=== PATIENT | male | born 1945 | race Caucasian/White ===

== ENCOUNTER 2022-04-12 15:07 | Emergency (ER) | payer MEDICARE, SELFPAY ==
[2022-04-12] VITALS (7 sets, daily range): BP systolic 108–152; BP diastolic 55–85; PULSE 70–82; RESP 18–20; TEMP 36.6; O2SAT 96–98
--- NOTE | 2022-04-12 15:10 | W.ED.WEAKNES ---
HPI - Weakness General: Chief complaint: Nausea/Vomiting/Diarrhea Stated complaint: WEAKNESS; N/V Time Seen by Provider: 04/12/22 15:10 History of Present Illness: Mr. Hernandez is a 76-year-old gentleman with history of hypertension, hyperlipidemia, difficulty with ambulation, history of persistent vertigo presenting to the emergency department due to nausea vomiting and generalized weakness. He reports over the past few days he has had nausea and vomiting multiple times mostly liquid and food contents. No blood in vomit. Additionally has had intermittent difficulties with constipation though is unsure if this is acutely changed from baseline his heel is longstanding history of intermittent diarrhea and constipation. No significant abdominal discomfort. Earlier today he was out at a cookout and outside most of the day. This caused increased weakness and he got nauseous and was weak to the point that he vomited and fell to the ground on his knees. No head strike or loss of consciousness. Not on anticoagulation. Intensity symptoms is moderate to severe. Course is worsened. No other specific changes in health, exacerbating, or alleviating factors identified. Of note patient reports most of his care has been at [facility] in [place] though he is also seen at [facility] at [place]. His persistent vertigo and intermittent severe lower extremity weakness which limits ability to ambulate is currently under investigation with no clear etiology identified. Onset (ago): day(s) Duration: constant Location: generalized Severity: moderate Associated symptoms: Reports nausea and vomiting Review of Systems General: Reports: 10 or more systems reviewed and unremarkable except in HPI and below GI: Reports: nausea and vomiting [facility] ED PFSH: Medical History (Updated 04/12/22 @ 20:05 by Florentin Guillen MD) Hyperlipidemia Hypertension Vertigo Weakness Surgical History (Updated 04/12/22 @ 15:33 by Florentin Guillen MD) History of eyelid surgery History of nasal surgery Social History (Updated 04/12/22 @ 15:34 by Florentin Guillen MD) Smoking and tobacco status: former smoker Quit status (tobacco): has quit using tobacco Year quit tobacco: 1980 Physical Exam Const: COMMON NORMALS: alert GENERAL APPEARANCE: cooperative and well developed HENMT: COMMON NORMALS: normocephalic and atraumatic HEAD & SCALP: normocephalic and atraumatic Eye: COMMON NORMALS: conjunctivae normal CONJUNCTIVA: Yes conjunctivae normal SCLERA: sclerae normal Neck/C-Spine: COMMON NORMALS: supple GENERAL: Yes trachea midline Resp: COMMON NORMALS: clear to auscultation bilaterally EFFORT & INSPECTION: Yes able to speak in complete sentences AUSCULTATION: clear to auscultation bilaterally Cardio: COMMON NORMALS: regular rate and regular rhythm RATE: regular rate RHYTHM: regular rhythm GI: COMMON NORMALS: Soft to palpation PALPATION: Yes Soft to palpation and No Tenderness to palpation present (GI) PERCUSSION: normal to percussion Extremity: GENERAL: Yes normal exam except as noted and No edema Neuro: COMMON NORMALS: moves all extremities SENSORIUM/ORIENTATION: Yes alert and No Orientation impaired Psych: COMMON NORMALS: mental status grossly normal and Normal thought process present THOUGHT PROCESS: Normal thought process present Skin: NARRATIVE SKIN EXAM: Abrasions bilateral shins Course ED course: - Patient was seen and evaluated by me at bedside - Patient placed on cardiac monitors, IV access obtained - Initial evaluation notable for exam as above. Nonfocal neurologic exam. - Labs and xrays personally interpreted by me. EKGs reviewed showing sinus rhythm with nonspecific ST segment abnormalities. No STEMI. -Tdap, symptom treatment ordered. - Labs notable for leukocytosis, normal hemoglobin. Metabolic panel with mildly elevated creatinine with hypokalemia. Replenishment ordered. Delta troponin negative. Urinalysis not concerning for urinary tract infection - Imaging notable for no lobar consolidation or pneumothorax on chest x-ray. CT abdomen pelvis negative for acute pathology to explain patient symptoms. Incidental findings discussed. - Upon serial reexamination after treatment the patient was dehydration of uncertain causative etiology. - Based on patient history, evaluation, and testing as interpreted the most likely cause of the patient's condition is improved - The results of ED evaluation were discussed with the patient including prescriptions and/or symptomatic cares (if applicable) including appropriate and responsible use, followup plan, and return precautions. The patient verbalized understanding and felt safe for discharge. - Patient discharged in satisfactory condition. Note: Click bubbles or prepopulated lees in note writing are used for assistance with data collection and billing and are inherently more limited than narrative and other text portions of this note. Please use narrative for additional clinical history and defer to narrative/free test for any case of contradictory information. If information appears in only free text or click bubble it should be considered present or absent as reported. Please contact note policy writer for clarifications of clinical information or contradictory information. MDM is a brief summary, contradictory or erroneous seeming information should be clarified and full note should be reviewed. Vital Signs: Vital signs: Vital Signs Temperature 97.8 F 04/12/22 15:10 Pulse Rate 70 04/12/22 20:47 Respiratory Rate 20 H 04/12/22 20:47 Blood Pressure 152/74 04/12/22 20:47 Pulse Oximetry 98 04/12/22 20:47 MDM - Weakness Medical Decision Making 76-year-old gentleman with complex past medical history presenting to the emergency department due to nausea, vomiting, generalized weakness. Patient found to be dehydrated with hypokalemia on laboratory studies. No obvious source because of patient's symptoms. Improved with symptom treatment and repeat BMP with resolution of significant dehydration. Satisfactory for outpatient management, patient comfortable with plan. Medical Records I reviewed the patient's medical records. Lab Data I reviewed the patient's lab results. : 04/12/22 15:15 04/12/22 19:20 Radiology Impressions Chest X-Ray 04/12/22 15:30 IMPRESSION: No acute findings. Abdomen/Pelvis CT 04/12/22 15:31 IMPRESSION: 1. Negative for acute inflammatory process in the abdomen or pelvis. 2. Coronary artery atherosclerotic calcifications. 3. Right middle lobe 8.1 mm pulmonary nodule partially imaged, dedicated chest CT advised nonemergently for further evaluation. 4. Cholelithiasis. 5. Prostate gland enlarged. 6. Several bilateral renal cysts, negative for follow-up advised. Laboratory Results WBC 15.8 10^3/uL (4.0-10.0) H 04/12/22 15:15 RBC 5.11 10^6/uL (4.1-5.3) 04/12/22 15:15 Hgb 14.6 g/dL (11.7-16.6) 04/12/22 15:15 Hct 44.2 % (42.0-52.0) 04/12/22 15:15 MCV 86.5 fl (80-94) 04/12/22 15:15 MCH 28.6 pg (28.0-34.0) 04/12/22 15:15 MCHC 33.0 g/dL (30.0-36.0) 04/12/22 15:15 RDW 15.5 % (12.1-15.1) H 04/12/22 15:15 Plt Count 315 10^3/cmm (130-400) 04/12/22 15:15 MPV 12.0 fL (7.4-10.4) H 04/12/22 15:15 Neut % (Auto) 62.4 % 04/12/22 15:15 Lymph % (Auto) 25.6 % 04/12/22 15:15 [place] % (Auto) 8.9 % 04/12/22 15:15 Eos % (Auto) 2.2 % 04/12/22 15:15 Baso % (Auto) 0.5 % 04/12/22 15:15 Neut # (Auto) 9.85 10^3/uL (1.8-7.7) H 04/12/22 15:15 Lymph # (Auto) 4.0 10^3/uL (0.8-4.8) 04/12/22 15:15 [place] # (Auto) 1.4 10^3/uL (0.2-0.9) H 04/12/22 15:15 Eos # (Auto) 0.3 10^3/uL (0.0-0.8) 04/12/22 15:15 Baso # (Auto) 0.1 10^3/uL (0.0-0.1) 04/12/22 15:15 Nucleated RBC % (auto) 0 % 04/12/22 15:15 Nucleated RBCs # 0.0 /100WBC 04/12/22 15:15 Sodium 140 mmol/L (136-145) 04/12/22 19:20 Potassium 3.6 mmol/L (3.5-5.1) 04/12/22 19:20 Chloride 103 mmol/L (98-107) 04/12/22 19:20 Carbon Dioxide 23 mmol/L (22-29) 04/12/22 19:20 Anion Gap 17.6 (5-19) 04/12/22 19:20 BUN 25 mg/dL (8-23) H 04/12/22 19:20 Creatinine 1.5 mg/dL (0.7-1.2) H 04/12/22 19:20 GFR Calculation Not Reportable 04/12/22 19:20 Glucose 80 mg/dL (65-115) 04/12/22 19:20 Calculated Osmolality 293 mOsm/kg (285-295) 04/12/22 19:20 Lactic Acid 2.0 mmol/L (0.5-2.2) 04/12/22 19:20 Calcium 10.0 mg/dL (8.5-10.5) 04/12/22 19:20 Total Bilirubin 0.5 mg/dL (0.15-1.2) 04/12/22 15:15 AST 20 U/L (0-40) 04/12/22 15:15 ALT 16 U/L (0-41) 04/12/22 15:15 Alkaline Phosphatase 85 IU/L (40-130) 04/12/22 15:15 Creatine Kinase 111 U/L (39-308) 04/12/22 15:15 Troponin T Baseline 18 ng/L (0-15) H 04/12/22 15:15 Troponin T 120 Minute 16.03 ng/L (0-15) H 04/12/22 17:16 Delta Troponin T -1.97 ABS# (0-10) L 04/12/22 17:16 C-Reactive Protein 4.6 mg/L (0.0-4.9) 04/12/22 15:15 NT-Pro-B Natriuret Pep 74 pg/mL (0-450) 04/12/22 15:15 Total Protein 7.7 g/dL (6.6-8.7) 04/12/22 15:15 Albumin 4.5 g/dL (3.5-5.2) 04/12/22 15:15 Globulin 3.2 g/dL (1.3-4.6) 04/12/22 15:15 Procalcitonin 0.14 ng/mL (0-0.5) 04/12/22 15:15 TSH 3.95 uIU/mL (0.27-4.20) 04/12/22 15:15 Urine Color Yellow (Yellow) 04/12/22 18:45 Urine Appearance Clear (CLEAR) 04/12/22 18:45 Urine pH 6 (5-7) 04/12/22 18:45 Ur Specific [place] 1.020 (1.005-1.030) 04/12/22 18:45 Urine Protein Neg (Negative) 04/12/22 18:45 Urine Glucose (UA) Norm (Normal) 04/12/22 18:45 Urine Ketones Negative (Negative) 04/12/22 18:45 Urine Blood Neg (Negative) 04/12/22 18:45 Urine Nitrate Negative (Negative) 04/12/22 18:45 Urine Bilirubin 1+ (Negative) H 04/12/22 18:45 Urine Urobilinogen 1 mg/dL (Negative) H 04/12/22 18:45 Ur Leukocyte Esterase 1+ (Negative) H 04/12/22 18:45 Urine RBC 0-4 /hpf (0-2) H 04/12/22 18:45 Urine WBC 5-10 /hpf (0-5) H 04/12/22 18:45 Ur Squamous Epith Cells 10-15 /hpf (0-5) H 04/12/22 18:45 Amorphous Sediment 1+ /hpf 04/12/22 18:45 Urine Bacteria Trace /hpf (NONE) 04/12/22 18:45 Hyaline Casts 0-4 /lpf H 04/12/22 18:45 Urine Mucus 2+ /hpf 04/12/22 18:45 Discharge Plan Discharge Patient Disposition: Home Clinical Impression: Nausea & vomiting, Weakness, Dehydration, Creatinine elevation Condition: Stable Prescriptions: New ondansetron 4 mg tablet,disintegrating 4 mg PO Q8H PRN (Reason: nausea and vomiting) Qty: 15 0RF No Action Zyrtec 10 mg Tablet 10 mg PO DAILY 0RF metoprolol tartrate 100 mg tablet 50 mg PO BID 0RF lisinopril 20 mg tablet 20 mg PO BID 0RF topiramate 25 mg tablet 25 mg PO BID 0RF hydralazine 25 mg tablet 25 mg PO BID 0RF pravastatin 80 mg tablet 80 mg PO DAILY 0RF metformin 1,000 mg tablet 1,000 mg PO DAILY 0RF glimepiride 4 mg tablet 4 mg PO DAILY 0RF fluticasone propionate 50 mcg/actuation spray,suspension 2 spray intranasal DAILY PRN (Reason: Nasal Congestion) 0RF hydrochlorothiazide 12.5 mg tablet 12.5 mg PO DAILY 0RF Ozempic 0.25 mg or 0.5 mg(2 mg/1.5 mL) pen injector 0.5 mg SUBCUT Q7D 0RF Rx Instructions: ON SUNDAYS Discharge Orders: Discharge ED (Routine); Ordered 04/12/22 Ordered By: Florentin Guillen Discharge Diet: Advance as tolerated and Clear Liquid Discharge Activity: Increase activity as tolerated Patient Instructions: Dehydration (ED), Acute Nausea and Vomiting (ED), Weakness (ED) Activity Restrictions/Additional Instructions: Thank you for visiting the emergency department. You were seen and evaluated for nausea, vomiting, weakness. The exact cause of your symptoms is unclear. You were noted to have fairly significant dehydration which improved after a IV fluids. I will discharge you with antinausea medications, please ensure that you are drinking plenty of water. Additionally, given elevated kidney function I recommend repeat laboratory studies in 1 week to ensure improvement. Please follow-up with your primary care provider. Please return to the emergency department for worsening symptoms, inability to tolerate p.o. intake, continued nausea vomiting, or anything else that you are concerned about and feel needs emergency department evaluation. 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
--- NOTE | 2022-04-12 15:30 | XRR_ITS ---
PROCEDURE INFORMATION: Exam: XR Chest Exam date and time: 04/12/2022 3:47 PM Age: 76 years old Clinical indication: Injury or trauma; Fall; Blunt trauma (contusions or hematomas); Additional info: Fall, weakness TECHNIQUE: Imaging protocol: XR of the chest. Views: 1 view. COMPARISON: No relevant prior studies available. FINDINGS: Lungs: Unremarkable. No consolidation. Pleural spaces: Unremarkable. No pleural effusion. No pneumothorax. Heart/Mediastinum: Unremarkable. No cardiomegaly. Bones/joints: Unremarkable. XR/XR chest 1V portable [id number] IMPRESSION: No acute findings.
--- NOTE | 2022-04-12 15:31 | CTR_ITS ---
PROCEDURE INFORMATION: Exam: CT Abdomen And Pelvis Without Contrast Exam date and time: 04/12/2022 3:54 PM Age: 76 years old Clinical indication: Abdominal pain; Epigastric; Additional info: N/v TECHNIQUE: Imaging protocol: Computed tomography of the abdomen and pelvis without contrast. Radiation optimization: All CT scans at this facility use at least one of these dose optimization techniques: automated exposure control; mA and/or kV adjustment per patient size (includes targeted exams where dose is matched to clinical indication); or iterative reconstruction. COMPARISON: CR (CHEST, ) 04/12/2022 3:47 PM RADIATION DOSE METRICS: Total DLP (mGy-cm): 1928.3 FINDINGS: Lungs: Right middle lobe 8.1 mm pulmonary nodule partially imaged, dedicated chest CT advised nonemergently for further evaluation. Heart: Coronary artery atherosclerotic calcifications. Liver: Normal. No mass. Gallbladder and bile ducts: Cholelithiasis. Pancreas: Normal. No ductal dilation. Spleen: Normal. No splenomegaly. Adrenal glands: Normal. No mass. Kidneys and ureters: Several bilateral renal cysts, negative for follow-up advised. Stomach and bowel: Unremarkable. No obstruction. No mucosal thickening. Appendix: No evidence of appendicitis. Intraperitoneal space: Unremarkable. No free air. No significant fluid collection. Vasculature: Unremarkable. No abdominal aortic aneurysm. Lymph nodes: Unremarkable. No enlarged lymph nodes. Urinary bladder: Unremarkable as visualized. Reproductive: Prostate gland enlarged. Bones/joints: Unremarkable. No acute fracture. Soft tissues: Unremarkable. CT/CT abdomen pelvis wo con [id number] IMPRESSION: 1. Negative for acute inflammatory process in the abdomen or pelvis. 2. Coronary artery atherosclerotic calcifications. 3. Right middle lobe 8.1 mm pulmonary nodule partially imaged, dedicated chest CT advised nonemergently for further evaluation. 4. Cholelithiasis. 5. Prostate gland enlarged. 6. Several bilateral renal cysts, negative for follow-up advised.
--- NOTE | 2022-04-12 15:31 | ECG_ITS ---
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 Measurements Intervals [place] Rate: 80 P: 63 [place]: 168 QRS: 85 QRSD: 92 T: 78 QT: 377 QTc: 435 Interpretive Statements SINUS RHYTHM NONSPECIFIC T-WAVE ABNORMALITY No previous ECG available for comparison Electronically Signed On 04-13-2022 13:26:27 CDT by Sunita Mckinley M.D. [email or web address]
[2022-04-12 15:42] LABS: Basophils # 0.1 10^3/uL (0.0-0.1); Basophils % 0.5 %; Eosinophils # 0.3 10^3/uL (0.0-0.8); Eosinophils % 2.2 %; Hematocrit 44.2 % (42.0-52.0); Hemoglobin 14.6 g/dL (11.7-16.6); Lymphocytes % 25.6 %; Mean Corpuscular Hemoglobin 28.6 pg (28.0-34.0); Mean Corpuscular Volume 86.5 fl (80-94); Monocytes # 1.4 10^3/uL (0.2-0.9); Monocytes % 8.9 %; Neutrophils # 9.85 10^3/uL (1.8-7.7); Neutrophils % 62.4 %; Nucleated Red Blood Cells % 0 %; Platelet Count 315 10^3/cmm (130-400); Red Blood Count 5.11 10^6/uL (4.1-5.3); Red Cell Distribution Width 15.5 % (12.1-15.1); White Blood Count 15.8 10^3/uL (4.0-10.0)
[2022-04-12 16:11] LABS: Troponin(5th) Baseline 18 ng/L (0-15)
[2022-04-12] MEDS: ondansetron 2 mg/ML SDV 2 mL 4 MG IVP (16:11)
[2022-04-12] MEDS: tetanus-dipt-pertussis 0.5 mL SDV IM (16:11)
[2022-04-12] MEDS: sodium chloride 0.9% 1,000 ML 999 ML IV ×2 (16:13→19:50)
[2022-04-12 16:18] LABS: NT Pro B Type Natriuretic Pept 74 pg/mL (0-450); Procalcitonin 0.14 ng/mL (0-0.5); Thyroid Stimulating Hormone 3.95 uIU/mL (0.27-4.20)
[2022-04-12 16:30] LABS: Alanine Aminotransferase 16 U/L (0-41); Albumin Level 4.5 g/dL (3.5-5.2); Alkaline Phosphatase 85 IU/L (40-130); Anion Gap 30.2 (5-19); Aspartate Amino Transferase 20 U/L (0-40); Blood Urea Nitrogen 25 mg/dL (8-23); C Reactive Protein 4.6 mg/L (0.0-4.9); Calcium 10.6 mg/dL (8.5-10.5); Carbon Dioxide 15 mmol/L (22-29); Chloride 98 mmol/L (98-107); Creatine Phosphokinase 111 U/L (39-308); Globulin 3.2 g/dL (1.3-4.6); Glucose 107 mg/dL (65-115); Osmolality Calculated 295 mOsm/kg (285-295); Potassium 3.2 mmol/L (3.5-5.1); Sodium 140 mmol/L (136-145); Total Bilirubin 0.5 mg/dL (0.15-1.2); Total Protein 7.7 g/dL (6.6-8.7)
--- NOTE | 2022-04-12 17:31 | ECG_ITS ---
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 Measurements Intervals [place] Rate: 71 P: 60 DC: 160 QRS: 84 QRSD: 95 T: 89 QT: 360 QTc: 391 Interpretive Statements SINUS RHYTHM NONSPECIFIC T-WAVE ABNORMALITY No previous ECG available for comparison Electronically Signed On 04-13-2022 13:29:05 CDT by Sunita Mckinley M.D. [id number]
[2022-04-12 17:49] LABS: Troponin 5 2HR 16.03 ng/L (0-15)
[2022-04-12 17:50] LABS: Troponin 5 2HR Delta -1.97 ABS# (0-10)
[2022-04-12 19:00] LABS: Add Urine Culture? No; Add Urine Microscopic? YES; Amorphous Sediment Urine 1+ /hpf; Bacteria Urine TRACE /hpf; Bilirubin Urine 1+ (Negative); Blood Urine Neg (Negative); Glucose Urine UA Norm (Normal); Hyaline Casts Urine 0-4 /lpf; Ketones Urine Negative (Negative); Leukocyte Esterase Urine 1+ (Negative); Mucus Urine 2+ /hpf; Nitrate Urine Negative (Negative); Protein Urine Neg (Negative); RBC Urine 0-4 /hpf (0-2); Urine Appearance Clear (CLEAR); Urine Color Yellow (Yellow); Urobilinogen Urine 1 mg/dL (Negative); pH Urine 6 (5-7)
[2022-04-12 19:42] LABS: Anion Gap 17.6 (5-19); Blood Urea Nitrogen 25 mg/dL (8-23); Carbon Dioxide 23 mmol/L (22-29); Chloride 103 mmol/L (98-107); Glucose 80 mg/dL (65-115); Osmolality Calculated 293 mOsm/kg (285-295); Potassium 3.6 mmol/L (3.5-5.1); Sodium 140 mmol/L (136-145)
[2022-04-12] MEDS: potassium chloride ER 20 mEq Tablet 40 MEQ PO (19:43)
== END 2022-04-12 21:14 | disposition home or self-care (01) ==
PROVIDERS: Emergency Provider Emergency Medicine; PCP Family Medicine
DX: E86.0 Dehydration (principal); K80.20 Calculus of gallbladder without cholecystitis without obstruction; N40.0 Benign prostatic hyperplasia without lower urinary tract symptoms; R53.1 Weakness; R11.2 Nausea with vomiting, unspecified; R94.4 Abnormal results of kidney function studies; Z23 Encounter for immunization
CPT/HCPCS: 36415; 71045; 74176; 80048; 80053; 81001; 82550; 83605; 83880; 84145; 84443; 84484; 85025; 86140; 90471; 90715; 93005; 96361; 96374; 99285; J2405; J7030